=== PATIENT | female | born 1980 | race Caucasian/White ===

== ENCOUNTER → 2019-02-08 | Outpatient (CLI) | payer SELFPAY ==
[~2019-02-08] MED LIST: NO HOME MEDICATIONS
== END ==
LOC: MC.RAD 08:15
DX: N63.10 Unspecified lump in the right breast, unspecified quadrant (principal); N63.20 Unspecified lump in the left breast, unspecified quadrant
CPT/HCPCS: G0279

== ENCOUNTER 2021-04-05 21:11 | Emergency (ER) | payer SELFPAY ==
[~2021-04-05] VITALS: Wt 54.5 kg
[2021-04-05 22:09] VITALS: TEMP 98.1
[2021-04-05 22:22] LABS: COLLECTION METHOD CLEAN CATCH
[2021-04-05 22:29] LABS: PH 6 (5-8); SQUAMOUS EPITHELIAL 0-2 /hpf; URINE APPEARANCE Hazy; URINE BACTERIA Rare /hpf; URINE BILIRUBIN Negative (NEGATIVE); URINE BLOOD Negative (NEGATIVE); URINE COLOR Straw; URINE GLUCOSE Negative (NEGATIVE); URINE KETONE Negative (NEGATIVE); URINE LEUKOCYTE ESTERASE 2+ (NEGATIVE); URINE NITRATE Negative (NEGATIVE); URINE PROTEIN(semi-quant) Negative (NEGATIVE); URINE RBC 0-2 /hpf; URINE UROBILINOGEN Negative (NEGATIVE)
[2021-04-05] MEDS ORDERED: AMOXICILLIN/CLA1 TA1 PO (22:51)
[2021-04-05 23:10] VITALS: BP 134/70; PULSE 76
== END 2021-04-05 23:10 | disposition home or self-care (01) ==
LOC: COL.ER 21:11
PROVIDERS: Emergency Medicine
DX: O23.11 Infections of bladder in pregnancy, first trimester (principal); Z3A.01 Less than 8 weeks gestation of pregnancy
CPT/HCPCS: J0696

== ENCOUNTER 2021-04-19 22:29 | Observation (INO) | payer SELFPAY ==
[~2021-04-19] VITALS: Ht 157.5 cm; Wt 61.4 kg
[~2021-04-19 22:29] MED LIST changes: +AMOXICILLIN/CLA1 TA1 PO
[2021-04-19 23:32] LABS: BASO # 0.1 (0.0-0.2); BASO % 0.4 % (0.0-2.0); EOS % 0.3 % (0-4.0); GRAN % 75.5 % (42.2-75.2); HEMOGLOBIN 12.2 g/dl (12.5-16.0); LYMPH % 16.9 % (20.0-51.0); MEAN CELL VOLUME 87 fl (80.0-100.0); MEAN CORPUSCULAR HEMOGLOBIN 31 pg (27.0-31.0); MEAN CORPUSCULAR HGB CONC 36 g/dl (33.0-37.0); MEAN PLATELET VOLUME 10.1 fl (7.4-10.4); MONO # 0.8 (0.1-0.6); MONO % 6.6 % (1.7-9.3); PLATELET COUNT 263 K/mm3 (130-400); RED BLOOD COUNT 3.96 M/mm3 (4.10-5.30); REDCELL DISTRIBUTION WIDTH-CV 12.4 % (11.5-14.5)
[2021-04-19 23:33] LABS: HEMATOCRIT 34.3 % (37.0-47.0)
[2021-04-19 23:42] LABS: ALBUMIN 3.8 gm/dL (3.5-5.0); BILIRUBIN,TOTAL 0.3 mg/dL (0.0-1.0); CREATININE, serum 0.39 (0.52-1.25); POTASSIUM 3.6 mmol/L (3.4-5.0); TOTAL PROTEIN 7.1 gm/dL (6.4-8.2)
[2021-04-20 04:40] VITALS: BP 118/38; PULSE 74; TEMP 98.4
--- NOTE | 2021-04-20 04:40 | NUR ---
Pt. arrived to the floor via bed from PACU. Pt. is [id number]. PT. is very teary eyed at this time. Assessment complete. INT to rt. ac. Pt. reports pain at a 5 on pain scale, will give pain meds per orders. Pt. denies further needs, call light within reach.
[2021-04-20 04:55] VITALS: BP 107/56; PULSE 65
[2021-04-20 05:10] VITALS: BP 93/53; PULSE 61
[2021-04-20 05:25] VITALS: BP 104/60; PULSE 61
[2021-04-20 05:55] VITALS: PULSE 66
--- NOTE | 2021-04-20 06:12 | NUR ---
Pt. has met discharge criteria. Pt. given and reviewed paperwork, questions answered. Pt. voices understanding. INT discontinued from rt. ac. Pt. getting dressed.
--- NOTE | 2021-04-20 06:34 | NUR ---
Pt. escorted out by [employer]YING MACHINE OPERATOR via wheelchair.
== END 2021-04-20 06:35 | disposition home or self-care (01) ==
LOC: COL.ER 22:29 → SURG 04-20 03:37
PROVIDERS: Emergency Medicine; ADMIT Obstetrics & Gynecology
DX: O03.4 Incomplete spontaneous abortion without complication (principal); Z79.899 Other long term (current) drug therapy
CPT/HCPCS: J0690; J1885; J2210; J2405; J2704; J3010; J7030

== ENCOUNTER 2021-05-29 01:10 | Emergency (ER) | payer OTHER ==
[~2021-05-29] VITALS: Ht 162.6 cm; Wt 61.4 kg
[2021-05-29 01:13] VITALS: TEMP 97.1
[2021-05-29 02:14] LABS: COLLECTION METHOD CLEAN CATCH
[2021-05-29 02:16] LABS: BASO # 0.1 (0.0-0.2); BASO % 0.5 % (0.0-2.0); EOS # 0.1 (0.0-0.7); GRAN # 5.1 (1.4-6.5); HEMATOCRIT 40.2 % (37.0-47.0); HEMOGLOBIN 14.1 g/dl (12.5-16.0); LYMPH # 3.2 (1.2-3.4); LYMPH % 34.2 % (20.0-51.0); MEAN CELL VOLUME 88 fl (80.0-100.0); MEAN CORPUSCULAR HEMOGLOBIN 31 pg (27.0-31.0); MEAN CORPUSCULAR HGB CONC 35 g/dl (33.0-37.0); MEAN PLATELET VOLUME 10.5 fl (7.4-10.4); MONO # 0.8 (0.1-0.6); PLATELET COUNT 275 K/mm3 (130-400); RED BLOOD COUNT 4.55 M/mm3 (4.10-5.30); REDCELL DISTRIBUTION WIDTH-CV 12.6 % (11.5-14.5)
[2021-05-29 02:19] LABS: PH 5 (5-8); URINE APPEARANCE Clear; URINE BACTERIA None Seen /hpf; URINE BILIRUBIN Negative (NEGATIVE); URINE BLOOD 1+ (NEGATIVE); URINE COLOR Yellow; URINE GLUCOSE Negative (NEGATIVE); URINE KETONE Negative (NEGATIVE); URINE LEUKOCYTE ESTERASE Negative (NEGATIVE); URINE NITRATE Negative (NEGATIVE); URINE PROTEIN(semi-quant) Negative (NEGATIVE); URINE RBC 0-2 /hpf; URINE UROBILINOGEN Negative (NEGATIVE)
[2021-05-29 02:26] LABS: ALBUMIN 4.2 gm/dL (3.5-5.0); BILIRUBIN,TOTAL 0.5 mg/dL (0.0-1.0); CALCIUM 9.4 mg/dL (8.4-10.2); CREATININE, serum 0.46 (0.52-1.25); POTASSIUM 3.8 mmol/L (3.4-5.0); TOTAL PROTEIN 7.8 gm/dL (6.4-8.2)
[2021-05-29] MEDS ORDERED: PROZAC 10MG10 MG PO (07:18)
[2021-05-29 07:19] VITALS: BP 104/70
[2021-05-29 07:53] VITALS: PULSE 99
== END 2021-05-29 07:53 | disposition home or self-care (01) ==
LOC: COL.ER 01:10
PROVIDERS: Emergency Medicine Emergency Medical Services
DX: R10.30 Lower abdominal pain, unspecified (principal)